=== PATIENT | male | born 2005 | race Caucasian/White ===

== ENCOUNTER 2024-08-30 01:45 | Inpatient (IN) | payer BC ==
[~2024-08-30] VITALS: Ht 167.6 cm; Wt 67.1 kg
[2024-08-30 01:59] VITALS: O2SAT 100
[2024-08-30] MEDS ORDERED: VISCOUS LIDOCAINE 2% 15 ML UDC PO STA (02:18)
[2024-08-30] MEDS: ONDANSETRON HCL 4MG/2ML INJ IV STA (02:57)
[2024-08-30] MEDS: MORPHINE SULFATE 4 MG/ML INJ (FOR IV/IM USE) IV STA (02:57)
[2024-08-30] MEDS: PANTOPRAZOLE SODIUM 40 MG/VIAL IV STA (02:58)
[2024-08-30] MEDS: MAGNESIUM/ALUMINUM HYDROXIDE/SIMETHICONE 30ML UDC PO STA (03:04)
[2024-08-30] MEDS: SODIUM CHLORIDE 0.9% 1,000 ML IV ONE (03:04)
[2024-08-30] MEDS: VISCOUS LIDOCAINE 2% 15 ML UDC PO SCH (03:25)
[2024-08-30 03:33] LABS: BASOPHILS % 0.5 % (0.0-2.0); EOSINOPHILS % 1.3 % (0.0-5.0); HEMATOCRIT. 44.4 % (42.0-52.0); HEMOGLOBIN. 14.8 g/dL (14.0-18.0); LYMPHOCYTES % 17.8 % (20.0-50.0); MEAN CORPUSCULAR HEMOGLOBIN 29.9 pg (28.0-32.0); MEAN CORPUSCULAR HGB CONC 33.2 g/dL (31.0-37.0); MEAN CORPUSCULAR VOLUME 89.9 fL (80.0-94.0); MEAN PLATELET VOLUME 8.8 fl (7.4-10.4); NEUTROPHILS % 73.4 % (40.0-76.0); PLATELET 284 x1000/uL (130-400); RED BLOOD CELL COUNT 4.94 mill/uL (4.7-6.1); WHITE BLOOD COUNT 16.4 x1000/uL (4.5-11.0)
[2024-08-30 03:44] LABS: DIFFERENTIAL COMMENT 1; PROTHROMBIN TIME 10.9 sec (9.6-11.0)
[2024-08-30 03:48] LABS: CHLORIDE 105 mEq/L (98-107); SODIUM 139 mEq/L (136-145)
[2024-08-30 03:49] LABS: CALCIUM 9.7 mg/dL (8.7-10.4); CARBON DIOXIDE 22 mEq/L (21-32)
[2024-08-30 03:54] LABS: CREATININE 0.9 mg/dL (0.6-1.3); GLUCOSE 163 mg/dL (70-105); UREA NITROGEN BLOOD 12 mg/dL (9-23)
[2024-08-30 03:55] LABS: ETHANOL BLOOD < 10 mg/dL (<10)
[2024-08-30 03:56] LABS: ALANINE AMINOTRANSFERASE 24 IU/L (10-49); ALBUMIN 4.9 g/dL (3.2-4.8); ASPARTATE AMINOTRANSFERASE 22 IU/L (<34); BILIRUBIN DIRECT 0.2 mg/dL (<=3.0); BILIRUBIN TOTAL 0.8 mg/dL (0.1-1.0)
[2024-08-30 03:57] LABS: PROTEIN TOTAL 7.3 g/dL (6.0-8.3)
[2024-08-30 04:13] LABS: CLARITY URINE CLEAR (CLEAR); COLOR URINE YELLOW (YELLOW); GLUCOSE URINE NEGATIVE (NEGATIVE); KETONES URINE 2+ (NEGATIVE); LEUKOCYTE ESTERASE URINE NEGATIVE (NEGATIVE); NITRITE URINE NEGATIVE (NEGATIVE); OCCULT BLOOD URINE NEGATIVE (NEGATIVE); PH URINE 8.5 (4.5-8.0); PROTEIN URINE NEGATIVE (NEGATIVE); SPECIFIC GRAVITY URINE 1.011 (1.005-1.030); UROBILINOGEN URINE 0.2 E.U./dL (0.2-1.0)
[2024-08-30 04:19] LABS: *AMPHETAMINES SCREEN URINE NEGATIVE (NEGATIVE); *BARBITURATES SCREEN URINE NEGATIVE (NEGATIVE); *BENZODIAZEPINES SCREEN URINE NEGATIVE (NEGATIVE); *COCAINE SCREEN URINE NEGATIVE (NEGATIVE); CANNABINOID URINE SCREEN PRESUMPTIVE POSITIVE (NEGATIVE); ECSTASY MDMA SCREEN URINE NEGATIVE (NEGATIVE); METHADONE URINE SCREEN NEGATIVE (NEGATIVE); OPIATES URINE SCREEN PRESUMPTIVE POSITIVE (NEGATIVE); PHENCYCLIDINE URINE SCREEN NEGATIVE (NEGATIVE)
[2024-08-30 04:50] LABS: POTASSIUM 2.8 mEq/L (3.5-5.1)
[2024-08-30] MEDS ORDERED: PANT40SU MT (05:33)
[2024-08-30] MEDS ORDERED: ONDA4TAB50 MT (05:33)
[2024-08-30] MEDS ORDERED: POTA-204 MT (05:33)
[2024-08-30] MEDS: MORPHINE SULFATE 4 MG/ML INJ (FOR IV/IM USE) IV SCH (05:53)
[2024-08-30] MEDS: SUCRALFATE 1G TABLET PO SCH (05:53)
[2024-08-30] MEDS: POTASSIUM CHLORIDE 20MEQ/PACKET PO SCH (05:53)
[2024-08-30] MEDS: KCL 20MEQ/100ML PREMIX 100 ML IV SCH (05:54)
[2024-08-30] MEDS: SODIUM CHLORIDE 0.9% 500 ML IV ONE (06:15)
[2024-08-30 08:00] VITALS: BP 104/51; PULSE 75; RESP 18; TEMP 36.7; O2SAT 99
[2024-08-30 08:47] VITALS: O2SAT 98
[2024-08-30] MEDS ORDERED: PANTOPRAZOLE SODIUM 40 MG/VIAL IV SCH (10:00)
[2024-08-30] MEDS ORDERED: MAGNESIUM/ALUMINUM HYDROXIDE/SIMETHICONE 30ML UDC PO PRN (10:00)
[2024-08-30] MEDS ORDERED: SODIUM CHLORIDE 0.9% 1,000 ML IV SCH (10:00)
[2024-08-30] MEDS ORDERED: ONDANSETRON HCL 4MG/2ML INJ IV PRN (10:00)
[2024-08-30] MEDS ORDERED: DIPHENHYDRAMINE 50MG/ML VIAL IV PRN (10:00)
[2024-08-30] MEDS ORDERED: KETOROLAC 30MG/ML VIAL IV PRN (10:00)
[2024-08-30] MEDS ORDERED: ACETAMINOPHEN 325MG TABLET PO PRN (10:00)
[2024-08-30 11:02] VITALS: BP 104/51; PULSE 75; RESP 18; TEMP 36.8
[2024-08-30] MEDS ORDERED: SUCRALFATE 1G TABLET PO SCH (12:10)
[2024-08-30] MEDS ORDERED: ZOLPIDEM TARTRATE 5MG TABLET PO PRN (21:00)
== END 2024-08-30 12:52 | disposition left against medical advice (07) | DRG 641 ==
LOC: ER 02:52 → 8WST 07:48 → ENRESERV 08:26
PROVIDERS: ADMIT Internal Medicine; ATTEND Internal Medicine
DX: E87.6 Hypokalemia (principal); K21.9 Gastro-esophageal reflux disease without esophagitis; R10.9 Unspecified abdominal pain; Z79.899 Other long term (current) drug therapy; F12.90 Cannabis use, unspecified, uncomplicated
CPT/HCPCS: 36415; 71045; 80048; 80076; 80305; 80320; 81003; 83735; 85025; 93005; 99285; J2270; J2405; J2470; J3480; J7030; J7040; G0480